=== PATIENT | female | born 1960 | race Caucasian/White ===

== ENCOUNTER 2022-07-27 13:46 | Emergency (ER) | payer SELFPAY ==
--- NOTE | 2022-07-27 15:01 | ER ---
Nurse's Notes [facility] Name: Lona Paez Age: 62 yrs Sex: Female : 1960 Arrival Date: 07/27/2022 Time: 13:49 Bed Waiting Private MD: Diagnosis: Presentation: 07/27 14:16 Chief complaint: Patient states: VIKTORIA hand pain/swelling X 2 days. Coronavirus screen: ss At this time, the client does not indicate any symptoms associated with coronavirus-19. Ebola Screen: No symptoms or risks identified at this time. Initial Sepsis Screen: Does the patient meet any 2 criteria? No. Patient's initial sepsis screen is negative. Does the patient have a suspected source of infection? No. Patient's initial sepsis screen is negative. Risk Assessment: Do you want to hurt yourself or someone else? Patient reports no desire to harm self or others. Onset of symptoms was July 27, 2022. 14:16 Method Of Arrival: Ambulatory ss 14:16 Acuity: ROMIE 4 ss Triage Assessment: 14:15 General: Appears in no apparent distress. comfortable, Behavior is calm, cooperative, ss appropriate for age. Pain: Complains of pain in right hand and left hand Pain does not radiate. Pain currently is 9 out of 10 on a pain scale. Quality of pain is described as pressure, throbbing. EENT: No signs and/or symptoms were reported regarding the EENT system. Neuro: Level of Consciousness is awake, alert, obeys commands, Oriented to person, place, time, situation, Appropriate for age. Cardiovascular: Capillary refill < 3 seconds Patient's skin is warm and dry. Respiratory: Airway is patent Respiratory effort is even, unlabored. GI: Abdomen is flat, non-distended. : No signs and/or symptoms were reported regarding the genitourinary system. Derm: No signs and/or symptoms reported regarding the dermatologic system. Musculoskeletal: No signs and/or symptoms reported regarding the musculoskeletal system. Historical: - Allergies: 14:15 No Known Allergies; ss - Home Meds: 14:15 None [Active]; ss - PMHx: 14:15 None; ss - PSHx: 14:15 Total abdominal hysterectomy; ss - Immunization history:: Adult Immunizations up to date, Client reports having NOT received the Covid vaccine. - Social history:: Smoking status: Patient reports the use of cigarette tobacco products, smokes one pack cigarettes per day. Patient/guardian denies using alcohol. Vital Signs: 14:15 BP 151 / 83; Pulse 64; Resp 18; Temp 97.6(O); Pulse Ox 98% on R/A; Weight 52.16 kg; ss Height 5 ft. 6 in. (167.64 cm); Pain 9/10; 14:15 Body Mass Index 18.56 (52.16 kg, 167.64 cm) ED Course: 13:49 Patient arrived in ED. [id number] 14:15 Arm band placed on right wrist. 14:16 Triage completed. 14:59 Maritza Shultz, RN is Primary Nurse. iw Administered Medications: No medications were administered Outcome: 15:01 Patient left the ED. iw Signatures: Maritza Shultz, RN RN iw Deirdre Manning RN RN ss Garcia, Rubi rg4
[2022-07-27 16:08] VITALS: BP 151/83; TEMP 97.6; O2SAT 98
== END 2022-07-27 15:01 | disposition left against medical advice (07) ==
LOC: ER 13:46
DX: Z53.21 Procedure and treatment not carried out due to patient leaving prior to being seen by health care provider (principal)
CPT/HCPCS: 99281